=== PATIENT | female | born 1990 | race African-American/Black ===

== ENCOUNTER 2018-02-05 15:06 | Inpatient (IN) ==
[2018-02-05] MEDS ORDERED: ONDANSETRON 4 MG/2 ML VIAL IV PRN (15:28)
[2018-02-05] MEDS ORDERED: BUTORPHANOL 2 MG/ML VIAL IV PRN (15:28)
[2018-02-05] MEDS ORDERED: LACTATED RINGERS 500 ML IV PRN (15:28)
[2018-02-05] MEDS ORDERED: DINOPROSTONE VAG GEL 10 MG SYRINGE VAG ONE (15:31)
[2018-02-05 16:00] LABS: Basophils % 0.2 % (0.0-0.8); Eosinophils # 0.1 10*3/uL (0.0-0.87); Eosinophils % 2.2 % (0.00-10.9); Hematocrit 29.3 VOL% (35.7-47.0); Hemoglobin 9.6 GM/DL (12.0-16.0); Immature Granulocytes % 0.2 %; Immature Granulocytes Absolute 0.01 #; Lymphocytes # 1.1 10*3/uL (1.4-4.0); Mean Corpuscular HGB Conc 32.8 GM/DL (32-36); Mean Corpuscular Hemoglobin 28 PG (27-34); Mean Corpuscular Volume 84.7 FL (87-102); Mean Platelet Volume 10.5 FL (9.6-12.0); Monocytes # 0.5 10*3/uL (0.11-0.8); Monocytes % 7.9 % (1.7-12.7); Neutrophils # 4.2 10*3/uL (1.4-7.4); Neutrophils % 71.5 % (38.7-73.9); Platelet Count 249 T/CUMM (130-400); Red Blood Count 3.46 MC/CUMM (3.8-5.5); Red Cell Distribution Width 14.4 % (9.3-17.3); White Blood Count 5.8 T/CUMM (4-12)
[2018-02-05] MEDS: LACTATED RINGERS 1,000 ML IV SCH (19:15)
[2018-02-05] MEDS: MEPERIDINE 50 MG/1 ML VIAL IV PRN (20:14)
[2018-02-05] MEDS ORDERED: diphenhydrAMINE 50 MG/1 ML VIAL IV PRN (20:45)
[2018-02-05] MEDS ORDERED: CITRIC ACID/SODIUM CITRATE 30 ML UDCUP PO ONE (20:45)
[2018-02-05] MEDS ORDERED: NALOXONE 0.4 MG/ML VIAL IV PRN (20:45)
[2018-02-05] MEDS ORDERED: hydrOXYzine HCL 25 MG/1 ML VIAL IM PRN (20:45)
[2018-02-05] MEDS ORDERED: ePHEDrine 50 MG/ML AMP IV PRN (20:45)
[2018-02-05] MEDS ORDERED: PROMETHAZINE 25 MG/1 ML VIAL IM ONE (20:45)
[2018-02-05] MEDS ORDERED: FAMOTIDINE 20 MG/2 ML VIAL IV ONE (20:45)
[2018-02-05] MEDS ORDERED: fentaNYL 2 MCG/ROPIV 0.2% EPID 100 ML EPIDURAL SCH (21:00)
[2018-02-06] MEDS ORDERED: OXYTOCIN/LR 20 UNIT/1,000 ML BAG IV SCH (02:00)
[2018-02-06] MEDS: MEPERIDINE 50 MG/1 ML VIAL IV PRN (07:19)
[2018-02-06] MEDS: LACTATED RINGERS 1,000 ML IV SCH ×2 (07:44→14:41)
[2018-02-06] MEDS ORDERED: DINOPROSTONE VAG GEL 10 MG SYRINGE VAG ONE ×2 (08:40→08:53)
[2018-02-06] MEDS ORDERED: CITRIC ACID/SODIUM CITRATE 30 ML UDCUP ONE (10:14)
[2018-02-06] MEDS ORDERED: FAMOTIDINE 20 MG/2 ML VIAL IV ONE (10:30)
[2018-02-06 13:53] LABS: Apearance,Urine CLEAR (Clear); Bilirubin,Urine Negative (Negative); Blood, Urine Negative (Negative); Glucose,Urine (UA) Negative (Negative); Ketones,Urine 20 mg/dL (Negative); Nitrite,Urine Negative (Negative); Protein,Urine Negative; RBC,Urine <1 /HPF (0-4); Urine Color Colorless (Yellow); Urine Specific Gravity 1.003 (1.001-1.035); Urine Urobilinogen < 2.0 EU/DL (0.2-1.0)
[2018-02-06] MEDS ORDERED: ceFAZolin 2,000 MG in PREMIX 1 EACH IV ONE (23:06)
[2018-02-06] MEDS ORDERED: OXYTOCIN/LR 30 UNIT/1,000 ML BAG IV ONE (23:09)
[2018-02-06] MEDS ORDERED: OXYTOCIN 10 UNIT/ML VIAL IM ONE (23:09)
[2018-02-07] MEDS ORDERED: ACETAMINOPHEN 325 MG TABLET PO PRN (00:15)
[2018-02-07] MEDS ORDERED: ONDANSETRON 4 MG/2 ML VIAL IV PRN (00:15)
[2018-02-07] MEDS ORDERED: RHO(D) IMMUNE GLOBULIN 300 MCG SYRINGE IM ONE (00:15)
[2018-02-07] MEDS ORDERED: OXYTOCIN/LR 20 UNIT/1,000 ML BAG IV ONE (00:15)
[2018-02-07] MEDS ORDERED: MIDAZOLAM 2 MG/2 ML VIAL ONE (00:25)
[2018-02-07] MEDS ORDERED: MORPHINE 10 MG/10 ML VIAL ONE (00:25)
[2018-02-07] MEDS ORDERED: PHENYLEPHRINE 1 MG/10 ML SYRINGE IV ONE (00:25)
[2018-02-07] MEDS ORDERED: LIDOCAINE MPF 2% /EPI 20 ML VIAL ONE (00:25)
[2018-02-07] MEDS ORDERED: ONDANSETRON 4 MG/2 ML VIAL ONE (00:25)
[2018-02-07] MEDS ORDERED: LACTATED RINGERS 1,000 ML IV SCH (00:30)
[2018-02-07] MEDS ORDERED: diphenhydrAMINE 50 MG/1 ML VIAL IV PRN (04:26)
[2018-02-07] MEDS ORDERED: HYDROmorphone 2 MG/1 ML VIAL IV PRN (04:26)
[2018-02-07 04:50] LABS: Cord Arterial Blood HCO3 18.7 MMOL/L
[2018-02-07 04:52] LABS: Cord Venous Blood HCO3 21.5 MMOL/L; Cord Venous Blood PCO2 37.9 MMHG; Cord Venous Blood PO2 31.9 MMHG
[2018-02-07] MEDS: ceFAZolin 1,000 MG in SYRINGE 1 EACH IV SCH ×2 (06:44→15:45)
[2018-02-07] MEDS ORDERED: hydrOXYzine HCL 25 MG/1 ML VIAL IM PRN (06:52)
[2018-02-07 08:41] LABS: Basophils % 0.1 % (0.0-0.8); Eosinophils % 0.2 % (0.00-10.9); Hematocrit 29.5 VOL% (35.7-47.0); Hemoglobin 9.3 GM/DL (12.0-16.0); Immature Granulocytes % 0.3 %; Immature Granulocytes Absolute 0.04 #; Lymphocytes % 7.2 % (21.3-54.2); Mean Corpuscular HGB Conc 31.5 GM/DL (32-36); Mean Corpuscular Hemoglobin 27 PG (27-34); Mean Corpuscular Volume 85.3 FL (87-102); Mean Platelet Volume 10.7 FL (9.6-12.0); Monocytes % 7.2 % (1.7-12.7); Neutrophils # 11.4 10*3/uL (1.4-7.4); Platelet Count 219 T/CUMM (130-400); Red Blood Count 3.46 MC/CUMM (3.8-5.5); Red Cell Distribution Width 14.2 % (9.3-17.3); White Blood Count 13.4 T/CUMM (4-12)
[2018-02-07] MEDS ORDERED: MEPERIDINE 50 MG/1 ML VIAL ONE (09:12)
[2018-02-07] MEDS ORDERED: MEPERIDINE 50 MG/1 ML VIAL IV ONE (09:14)
[2018-02-07] MEDS ORDERED: diphenhydrAMINE CAP 50 MG CAPSULE PO PRN (15:30)
[2018-02-07] MEDS: DOCUSATE SODIUM 100 MG CAPSULE PO SCH ×2 (15:41→21:31)
[2018-02-07] MEDS: SIMETHICONE CHEW 80 MG TABLET PO PRN ×2 (15:41→21:31)
[2018-02-07] MEDS: MAGNESIUM HYDROXIDE SUSP 30 ML UDCUP PO PRN ×2 (15:41→21:31)
[2018-02-07] MEDS: MULTIVITAMIN (PRENATAL) TABLET PO SCH (15:55)
[2018-02-07] MEDS ORDERED: METOCLOPRAMIDE 10 MG/2 ML VIAL IV SCH (16:00)
[2018-02-07] MEDS ORDERED: HYDROCORTISONE 1% CREAM 28 GM TUBE TOP PRN (16:04)
[2018-02-07] MEDS: IBUPROFEN 800 MG TABLET PO PRN (21:28)
[2018-02-07] MEDS: METOCLOPRAMIDE 10 MG TABLET PO SCH (22:12)
[2018-02-08] MEDS: METOCLOPRAMIDE 10 MG TABLET PO SCH ×3 (05:08→12:06)
[2018-02-08] MEDS ORDERED: BISACODYL 10 MG SUPP RECTAL PRN (05:08)
[2018-02-08] MEDS: IBUPROFEN 800 MG TABLET PO PRN (06:10)
[2018-02-08 07:22] VITALS: BP 102/63
[2018-02-08] MEDS: MAGNESIUM HYDROXIDE SUSP 30 ML UDCUP PO PRN (09:04)
[2018-02-08] MEDS: DOCUSATE SODIUM 100 MG CAPSULE PO SCH (09:04)
[2018-02-08] MEDS: SIMETHICONE CHEW 80 MG TABLET PO PRN (09:04)
[2018-02-08] MEDS: MULTIVITAMIN (PRENATAL) TABLET PO SCH (09:04)
[2018-02-08] MEDS ORDERED: FUROSEMIDE 40 MG TABLET PO ONE (10:43)
== END 2018-02-08 14:45 | disposition home or self-care (01) | DRG 540 ==
LOC: N.LDOUT 15:06 → N.LD 15:09 → N.OB 02-07 04:05
PROVIDERS: ADMIT Obstetrics & Gynecology; ATTEND Obstetrics & Gynecology
PROC: LDCSECT (ICD-10-PCS; 2018-02-06 23:40)